=== PATIENT | female | born 1965 ===

== ENCOUNTER 2019-06-22 08:40 | Outpatient (CLI) | payer BC, OTHER | END 2019-06-22 08:41 | disposition home or self-care (01) | LOC: LABHHL 08:40 | PROVIDERS: ATTEND Surgery | DX: N63.0 Unspecified lump in unspecified breast (principal) | CPT/HCPCS: 88305 ==

== ENCOUNTER 2019-06-29 08:41 | Outpatient (CLI) | payer BC, OTHER | END 2019-06-29 08:42 | disposition home or self-care (01) | LOC: LABHHL 08:41 | PROVIDERS: ATTEND Surgery | DX: R92.0 Mammographic microcalcification found on diagnostic imaging of breast (principal) | CPT/HCPCS: 88305; 88342 ==